=== PATIENT | female | born 1970 | race Caucasian/White ===

== ENCOUNTER 2021-06-01 14:49 | Emergency (ER) | payer OTHER ==
[~2021-06-01] VITALS: Ht 160 cm; Wt 75.8 kg
[2021-06-01 14:58] VITALS: BP 152/96
[2021-06-01] MEDS ORDERED: CEPHALEXIN500 MG PO (17:12)
== END 2021-06-01 17:13 | disposition home or self-care (01) ==
LOC: ER 14:49
DX: S91.212A Laceration without foreign body of left great toe with damage to nail, initial encounter (principal); W22.8XXA Striking against or struck by other objects, initial encounter; Y93.89 Activity, other specified; Y92.89 Other specified places as the place of occurrence of the external cause; Y99.8 Other external cause status